=== PATIENT | male | born 2000 | race Hispanic/Latino ===

== ENCOUNTER 2022-08-08 22:40 | Emergency (ER) | payer SELFPAY ==
[2022-08-08] MEDS ORDERED: ALBUTEROL SUL0.083 % IN (22:53)
[2022-08-08] MEDS ORDERED: AZITHROMYCIN1 GM PO (22:53)
[2022-08-08] MEDS ORDERED: PREDNISONE20 MG PO (22:53)
[2022-08-08 23:28] VITALS: BP 143/95
[2022-08-08 23:31] VITALS: BP 155/87
[2022-08-08 23:46] VITALS: BP 131/74
[2022-08-09] VITALS: BP 143/82
[2022-08-09 00:14] LABS: BASO% 0.3 % (0-3); EOS% 0.4 % (0-8); HEMATOCRIT 42.5 % (39.0-50.0); HEMOGLOBIN 14.1 g/dl (14.0-18.0); IMMATURE GRANULOCYTES 0.2 % (0.0-5.0); LYMPH% 38.3 % (15-41); MEAN CELL VOLUME 82.5 fL CALC (80.0-100.0); MEAN CORPUSCULAR HGB 27.4 pG CALC (26.0-32.0); MEAN CORPUSCULAR HGB CONC 33.2 g/dL CAL (32.0-36.0); MONO% 6.6 % (2-13); NEUT# 4.93 thou/uL (1.82-7.42); NEUT% 54.2 % (42-76); RED BLOOD COUNT 5.15 mill/uL (4.70-6.10); RED CELL DISTRI WIDTH 12.4 % (11.5-15.5)
[2022-08-09 00:15] VITALS: BP 143/84
[2022-08-09 00:45] VITALS: BP 129/69
[2022-08-09 01:00] VITALS: BP 122/69
== END 2022-08-09 01:25 | disposition home or self-care (01) | DRG 203 ==
LOC: ED 22:40
PROVIDERS: Family Medicine
DX: J45.901 Unspecified asthma with (acute) exacerbation (principal); Z20.822 Contact with and (suspected) exposure to COVID-19

== ENCOUNTER 2022-08-13 00:50 | Emergency (ER) | payer SELFPAY ==
[~2022-08-13] VITALS: Ht 175.3 cm; Wt 107.0 kg
[~2022-08-13 00:50] MED LIST: ALBUTEROL SUL0.083 % IN; AZITHROMYCIN1 GM PO; PREDNISONE20 MG PO
[2022-08-13 01:02] VITALS: BP 133/93
[2022-08-13] MEDS ORDERED: IPRATROPIU0.5 MG/3 M IN (01:09)
[2022-08-13 01:10] VITALS: BP 121/81
[2022-08-13 01:15] VITALS: BP 130/89
[2022-08-13 01:30] VITALS: BP 122/81
[2022-08-13 01:45] VITALS: BP 126/83
[2022-08-13 01:56] VITALS: BP 126/83
== END 2022-08-13 01:57 | disposition home or self-care (01) | DRG 204 ==
LOC: ED 00:50
DX: R06.02 Shortness of breath (principal); F41.9 Anxiety disorder, unspecified